=== PATIENT | female | born 1980 | race Caucasian/White ===

== ENCOUNTER 2016-08-31 07:17 | Day surgery (SDC) | payer MEDICAID ==
[2016-08-31] VITALS (12 sets, daily range): BP systolic 85–108; BP diastolic 45–57; PULSE 60–74; RESP 12–16; Ht 167.6 cm; Wt 62.1 kg
[~2016-08-31] VITALS: Ht 167.6 cm; Wt 62.1 kg
[2016-08-31] MEDS ORDERED: SOD CHLORIDE 0.9% 1,000 ML IV SCH (09:00)
[2016-08-31] MEDS ORDERED: VANCOMYCIN 1 GM in NS 250 ML IVPB ONE (09:00)
[2016-08-31] MEDS ORDERED: FENTAnyl 50 MCG/ML VIAL ONE (11:59)
[2016-08-31] MEDS ORDERED: ROCURONIUM 50 MG INJ ONE (11:59)
[2016-08-31] MEDS ORDERED: ONDANSETRON 4 MG INJ ONE (11:59)
[2016-08-31] MEDS ORDERED: SUCCINYLCHOLINE CHLORIDE 100 MG/5 ML SYG IV ONE (11:59)
[2016-08-31] MEDS ORDERED: PROPOFOL 20 ML ONE (11:59)
[2016-08-31] MEDS ORDERED: CLINDAMYCIN 600 MG/D5W (PMX) 50 ML IVPB SCH (12:00)
[2016-08-31] MEDS ORDERED: METOCLOPRAMIDE 10 MG INJ ONE (12:00)
[2016-08-31] MEDS ORDERED: ONDANSETRON 4 MG INJ IV PRN (12:30)
[2016-08-31] MEDS ORDERED: MEPERIDINE 25 MG INJ IV PRN (12:30)
[2016-08-31] MEDS ORDERED: HYDROmorphONE (0.2 MG/ML) 10ML SYG IV PRN ×3 (12:30)
[2016-08-31] MEDS ORDERED: FENTAnyl 50 MCG/ML VIAL IV PRN ×2 (12:30)
[2016-08-31] MEDS ORDERED: HYDROCODONE/APAP (5/325) TAB PO ONE (13:00)
--- NOTE | 2016-09-03 04:39 | OPR ---
DATE OF OPERATION: 08/31/2016 PREOPERATIVE DIAGNOSIS: Right breast mass, probable fibroadenoma, rule out phyllodes tumor. POSTOPERATIVE DIAGNOSIS: Right breast mass, probable fibroadenoma, rule out phyllodes tumor. PROCEDURE PERFORMED: Right breast excision. SURGEON: Daryl Angel MD PRESS TOOL MAKER: Terrance Saldivar MD. ANESTHESIA: General. ANESTHESIOLOGIST: Fernando Hdz MD. INDICATIONS FOR PROCEDURE: The patient is a 36-year-old female who presented with enlarging mass in the upper outer quadrant of her right breast. Core biopsy revealed a fibroepithelial lesion and complete surgical excision was recommended. The patient consented and was scheduled for surgery. DESCRIPTION OF PROCEDURE: The patient was brought to the operating theater and placed under general anesthesia. The right breast was prepped and draped in the usual sterile fashion. The mass which was at approximately the 10 o'clock location approximately 4 cm from the nipple areolar border was identified. A 3-cm incision was made directly over the mass. The subcutaneous tissue was dissected with cautery. Deep within the breast parenchyma the mass was identified. It was somewhat infiltrated, it was elevated with an Allis clamp and meticulously dissected from the surrounding tissue using cautery. The specimen was removed and sent for pathologic analysis. The wound was irrigated. Minimal bleeding was controlled with cautery. The skin was then reapproximated with a 4-0 Vicryl suture in subcuticular fashion, and benzoin and Steri-Strips were applied. The patient tolerated the procedure well. The estimated blood loss was 10 mL. There were no complications and the patient was transported in stable condition to the recovery room where a circumferential compression dressing was applied. Dictated By: Daryl Angel MD /[email or web address] /Document#: [id number]
== END 2016-08-31 15:41 | disposition home or self-care (01) ==
LOC: SDS 07:17
PROVIDERS: ATTEND Surgery Surgical Oncology
DX: D24.1 Benign neoplasm of right breast (principal)
CPT/HCPCS: 19120; 88307; J2405; J2765; J3010; J7999; Z7512; Z7610